=== PATIENT | female | born 1985 | race Caucasian/White ===

== ENCOUNTER 2016-10-08 07:38 | Emergency (ER) | payer OTHER ==
[2016-10-08 07:50] VITALS: RESP 18; TEMP 98.6
[2016-10-08] MEDS ORDERED: NS 1,000 ML IV ONE (07:51)
--- NOTE | 2016-10-08 07:57 | EDPHY ---
H & P Time Seen by Provider: 10/08/16 07:45 HPI/ROS: HPI Lower abdominal pain. 31-year-old female by private vehicle with her mother. This patient reports that she developed lower abdominal, mid suprapubic pain last night after having sexual intercourse with a long-time boyfriend. She reports that her last bowel movement was yesterday. She denies any bloody or melenic stool. No diarrhea. Last menstrual period was 09/14/2016. She had a small amount of vaginal bleeding last night but then this stopped she has had no vaginal bleeding this morning. She describes having some mild burning with urination. No fever. No back pain. No nausea or vomiting. No other complaints. ROS: Constitutional: No fever, no chills. No weakness. Eyes: No discharge. No changes in vision. ENT: No sore throat. No nasal congestion or rhinorrhea. Respiratory: No cough. No shortness of breath. Cardiac: No chest pain, no palpitations. Gastrointestinal: As above, no vomiting, no diarrhea. Genitourinary: No hematuria. No dysuria or increased frequency with urination. Musculoskeletal: No back pain. No neck pain. No myalgias or arthralgias. Skin: No rashes. Neurological: No headache. No focal weakness or altered sensation. Past medical history: No significant past medical history. No prior abdominal surgical history. Social history: Nonsmoker. No alcohol. Here with her mother. Physical Exam: General Appearance: Alert, no distress. This patient is responding to questions appropriately and in full sentences. This patient appears well- hydrated and well-nourished. Eyes: Pupils equal and round no pallor or injection. No lid edema, erythema or injection. Respiratory: There are no retractions, lungs are clear to auscultation with good air movement bilaterally. Cardiovascular: Regular rate and rhythm. No murmur. Gastrointestinal: Abdomen is soft and nontender, mild suprapubic tenderness on palpation, no masses, bowel sounds normal. No focal tenderness at McBurney's point. No Siu sign. Neurological: Motor sensory function is grossly intact. Cranial nerves are normal. Gait is normal. Skin: Warm and dry, no rashes. Musculoskeletal: Neck is supple and nontender. Extremities are symmetrical. All joints range without pain or impingement. Psychiatric: No agitation. No depression. Database: EKG: Imaging: Pelvic ultrasound: Right ovarian hemorrhagic cyst measuring 5.4 x 5 x 4.0, small amount of hemoperitoneum, largest pocket is 3 x 3 cm. Otherwise no torsion. Uterus is unremarkable. No other significant findings. Results were discussed with staff radiologist Dr. Adolfo Washington. Procedures: Emergency department course: IV placed. She was placed on a monitor. She declines pain medication initially. Urine appropriate blood work obtained. She will be sent for a pelvic ultrasound. Vital signs reviewed and are normal. She is afebrile. 10:00 a.m., patient re-evaluated. Resting comfortably at this time. Vital signs reviewed and are normal. She states that she is feeling better. No vaginal bleeding. Repeat abdominal exam she is soft, nontender nondistended. I discussed the results of her ultrasound, blood work and urinalysis in detail with her and her mother. I discussed doing a pelvic exam. The patient and mother declined this at this time. I feel she is safe for discharge but with strict return to emergency department precautions. She feels comfortable going home with her mother. Follow-up was discussed with her. All of her questions were answered. She was discharged in good condition with her mother. Differential Diagnosis: The differential diagnosis on this patient includes but is not limited to cystitis, urinary tract infection, ovarian cyst, hemorrhagic ovarian cyst, vaginal trauma, cervicitis. Ectopic unlikely. This represents a partial list of diagnoses considered. These considerations are based on history , physical exam, past history, reassessment and diagnostic testing. Smoking Status: Never smoked Constitutional: Initial Vital Signs Temperature (C) 37.0 C 10/08/16 07:48 Heart Rate 63 10/08/16 07:48 Respiratory Rate 18 10/08/16 07:48 Blood Pressure 121/78 H 10/08/16 07:48 O2 Sat (%) 94 10/08/16 07:48 O2 Delivery Mode Room Air Allergies/Adverse Reactions: Penicillins Allergy (Intermediate, Verified 11/23/15 10:54) Rash Home Medications: Medication Instructions Recorded NK [No Known Home Meds] 10/08/16 Medical Decision Making - Data Points Laboratory Results: Laboratory Results 10/08/16 08:00 10/08/16 08:00 10/08/16 10/08/16 10/08/16 08:30 08:00 08:00 WBC RBC Hgb Hct MCV MCH MCHC RDW Plt Count MPV Neut % (Auto) Lymph % (Auto) [place] % (Auto) Eos % (Auto) Baso % (Auto) Nucleat RBC Rel Count Absolute Neuts (auto) Absolute Lymphs (auto) Absolute Monos (auto) Absolute Eos (auto) Absolute Basos (auto) Absolute Nucleated RBC Immature Gran % Immature Gran # Sodium 139 mEq/L mEq/L (134-144) Potassium 3.9 mEq/L mEq/L (3.5-5.2) Chloride 104 mEq/L mEq/L (97-110) Carbon Dioxide 20 mEq/l L mEq/l (22-31) Anion Gap 15 mEq/L mEq/L (8-16) BUN 6 mg/dL L mg/dL (7-23) Creatinine 0.6 mg/dL mg/dL (0.6-1.0) Estimated GFR > 60 Glucose 89 mg/dL mg/dL (70-100) Calcium 9.2 mg/dL mg/dL (8.5-10.4) Total Bilirubin 1.2 mg/dL mg/dL (0.1-1.4) Conjugated Bilirubin 0.3 mg/dL mg/dL (0.0-0.5) Unconjugated Bilirubin 0.9 mg/dL mg/dL (0.0-1.1) AST 17 IU/L IU/L (14-46) ALT 20 IU/L IU/L (9-52) Alkaline Phosphatase 63 IU/L IU/L (38-126) Total Protein 7.3 g/dL g/dL (6.3-8.2) Albumin 4.0 g/dL g/dL (3.5-5.0) Beta HCG, Qual NEGATIVE Urine Color YELLOW Urine Appearance CLEAR Urine pH 6.5 (5.0-7.5) Ur Specific [place] 1.010 (1.002-1.030) Urine Protein NEGATIVE (NEGATIVE) Urine Ketones 1+ H (NEGATIVE) Urine Blood 1+ H (NEGATIVE) Urine Nitrate NEGATIVE (NEGATIVE) Urine Bilirubin NEGATIVE (NEGATIVE) Urine Urobilinogen 0.2 EU EU (0.2-1.0) Ur Leukocyte Esterase TRACE H (NEGATIVE) Urine RBC 1-3 /hpf /hpf (0-3) Urine WBC 5-10 /hpf H /hpf (0-3) Ur Epithelial Cells 2+ /lpf H /lpf (NONE-1+) Urine Bacteria 2+ /hpf H /hpf (NONE SEEN) Urine Mucus 2+ /lpf H /lpf (NONE-1+) Urine Glucose NEGATIVE (NEGATIVE) 10/08/16 08:00 WBC 10.42 10^3/uL H 10^3/uL (3.80-9.50) RBC 4.23 10^6/uL 10^6/uL (4.18-5.33) Hgb 13.5 g/dL g/dL (12.6-16.3) Hct 39.8 % % (38.0-47.0) MCV 94.1 fL fL (81.5-99.8) MCH 31.9 pg pg (27.9-34.1) MCHC 33.9 g/dL g/dL (32.4-36.7) RDW 13.0 % % (11.5-15.2) Plt Count 222 10^3/uL 10^3/uL (150-400) MPV 10.5 fL fL (8.7-11.7) Neut % (Auto) 74.9 % H % (39.3-74.2) Lymph % (Auto) 17.3 % % (15.0-45.0) [place] % (Auto) 6.8 % % (4.5-13.0) Eos % (Auto) 0.3 % L % (0.6-7.6) Baso % (Auto) 0.4 % % (0.3-1.7) Nucleat RBC Rel Count 0.0 % % (0.0-0.2) Absolute Neuts (auto) 7.81 10^3/uL H 10^3/uL (1.70-6.50) Absolute Lymphs (auto) 1.80 10^3/uL 10^3/uL (1.00-3.00) Absolute Monos (auto) 0.71 10^3/uL 10^3/uL (0.30-0.80) Absolute Eos (auto) 0.03 10^3/uL 10^3/uL (0.03-0.40) Absolute Basos (auto) 0.04 10^3/uL 10^3/uL (0.02-0.10) Absolute Nucleated RBC 0.00 10^3/uL 10^3/uL (0-0.01) Immature Gran % 0.3 % % (0.0-1.1) Immature Gran # 0.03 10^3/uL 10^3/uL (0.00-0.10) Sodium Potassium Chloride Carbon Dioxide Anion Gap BUN Creatinine Estimated GFR Glucose Calcium Total Bilirubin Conjugated Bilirubin Unconjugated Bilirubin AST ALT Alkaline Phosphatase Total Protein Albumin Beta HCG, Qual Urine Color Urine Appearance Urine pH Ur Specific [place] Urine Protein Urine Ketones Urine Blood Urine Nitrate Urine Bilirubin Urine Urobilinogen Ur Leukocyte Esterase Urine RBC Urine WBC Ur Epithelial Cells Urine Bacteria Urine Mucus Urine Glucose Medications Given: Discontinued Medications Hydromorphone HCl (Dilaudid) 0.25 mg IVP EDNOW ONE Stop: 10/08/16 08:35 Last Admin: 10/08/16 08:34 Dose: 0.25 mg Sodium Chloride (Ns) 1,000 mls @ 0 mls/hr IV ONCE ONE; Wide Open PRN Reason: Protocol Stop: 10/08/16 07:52 Last Admin: 10/08/16 08:03 Dose: 1,000 mls Departure - Departure Disposition: Home, Routine, Self-Care Clinical Impression: Lower abdominal pain, Hemorrhagic cyst of right ovary Condition: Good Instructions: Ruptured Ovarian Cyst (ED) Additional Instructions: Read and follow provided instructions. Follow-up with your primary care physician or OBGYN in 1-2 days as needed for persisting symptoms. Return to the emergency department for worsening pain, fever, vaginal bleeding, lightheadedness, back pain or other serious concerns. Referrals: Sukhwinder Paredes MD [Primary Care Provider] - As per Instructions
[2016-10-08 08:05] LABS: % IMMATURE GRANULYOCYTES 0.3 % (0.0-1.1); ABSOLUTE IMMATURE GRANULOCYTES 0.03 10^3/uL (0.00-0.10); ADD DIFF? NO; ADD MORPH? NO; ADD SCAN? NO; ATYPICAL LYMPHOCYTE FLAG 10 (0-99); FRAGMENT RBC FLAG 0 (0-99); HEMATOCRIT 39.8 % (38.0-47.0); HEMOGLOBIN 13.5 g/dL (12.6-16.3); LEFT SHIFT FLG 0 (0-99); LIPEMIA HEMOLYSIS FLAG 90 (0-99); MEAN CELL HEMOGLOBIN 31.9 pg (27.9-34.1); MEAN CELL HEMOGLOBIN CONCENTR. 33.9 g/dL (32.4-36.7); MEAN CELL VOLUME 94.1 fL (81.5-99.8); MEAN PLATELET VOLUME 10.5 fL (8.7-11.7); PLATELET CLUMPS FLAG 10 (0-99); PLATELET COUNT 222 10^3/uL (150-400); RED BLOOD CELL COUNT 4.23 10^6/uL (4.18-5.33)
[2016-10-08] MEDS ORDERED: HYDROmorphONE/DILAUDID 1 MG/ML SYR ONE (08:24)
[2016-10-08 08:30] LABS: ALANINE AMINOTRANSFERASE 20 IU/L (9-52); ALKALINE PHOSPHATASE 63 IU/L (38-126); ANION GAP 15 mEq/L (8-16); ASPARTATE AMINOTRANSFERASE 17 IU/L (14-46); BILIRUBIN,TOTAL 1.2 mg/dL (0.1-1.4); BILIRUBIN-CONJUGATED 0.3 mg/dL (0.0-0.5); BILIRUBIN-UNCONJUGATED 0.9 mg/dL (0.0-1.1); CALCIUM 9.2 mg/dL (8.5-10.4); CARBON DIOXIDE 20 mEq/l (22-31); CHLORIDE 104 mEq/L (97-110); CREATININE 0.6 mg/dL (0.6-1.0); GLOMERULAR FILTRATION RATE > 60; GLUCOSE 89 mg/dL (70-100); POTASSIUM 3.9 mEq/L (3.5-5.2); SODIUM 139 mEq/L (134-144); TOTAL PROTEIN 7.3 g/dL (6.3-8.2)
[2016-10-08 08:32] LABS: COLOR YELLOW; LEUKOCYTE ESTERASE,URINE TRACE (NEGATIVE); NITRITE,URINE NEGATIVE (NEGATIVE); PH,URINE 6.5 (5.0-7.5)
[2016-10-08] MEDS ORDERED: HYDROmorphONE/DILAUDID 1 MG/ML SYR IVP ONE (08:34)
[2016-10-08 08:46] LABS: BACTERIA 2+ /hpf (NONE SEEN); MUCUS 2+ /lpf (NONE-1+)
[2016-10-08 10:18] VITALS: BP 99/40; PULSE 50; O2SAT 100
== END 2016-10-08 10:16 | disposition home or self-care (01) ==
LOC: CED 07:38
DX: N83.201 Unspecified ovarian cyst, right side (principal)
CPT/HCPCS: 76856-PO; 80048-PO; 80076-PO; 81003-PO; 81015-PO; 84703-PO; 85025-PO; 96374; J1170

== ENCOUNTER 2018-05-02 14:33 | Emergency (ER) | payer OTHER ==
--- NOTE | 2018-05-02 15:19 | EDPHY ---
H & P Time Seen by Provider: 05/02/18 14:52 HPI/ROS: She this patient complains of injury to the sacral/coccyx region and lumbar area from a fall from a pull-up bar in the gym yesterday evening. She was doing knee ops when she slipped and fell onto her low back/coccyx area. She reports 8 of 10 pain achy in nature baseline becomes sharp with movement. She has some improvement when she lies supine holding still and worsening with movement. She took 600 mg of ibuprofen 12 30 today without much improvement in pain and notes no other exacerbating factors. She does report associated 3rd finger injuries both hands right more than left 5/10 intensity pain to the PIP joints with mild swelling and ecchymosis. Her mother drove her in for evaluation today. ROS: Constitutional: No complaints HEENT: No injuries Neuro: No numbness tingling focal weakness, bowel or bladder incontinence. No closed head injury or headache Pulmonary: No chest wall pain GI: No abdominal pain Integumentary: No lacerations abrasions 7 point review of symptoms is performed and otherwise negative with exception of pertinent positives and negatives listed in HPI and ROS Smoking Status: Never smoked Physical Exam: General Appearance: Alert, no distress. Eyes: Pupils equal and round no pallor or injection. ENT,-atraumatic Mouth: Mucous membranes moist. Respiratory: There are no retractions, lungs are clear to auscultation. No chest wall tenderness Cardiovascular: Regular rate and rhythm. Gastrointestinal: Abdomen is soft and nontender, no masses, bowel sounds normal. Back: She has midline tenderness from El for extending downward to the coccyx. This is moderate tenderness. No ecchymosis appreciated. Pelvic bones: No pain with anterior pressure on the pubic symphysis or the pressure from lateral to medial on the iliac crests. Neurological: GCS 15. She maintains normal light touch sensory exam bilateral lower extremities and 2+ symmetric patellar and Achilles DTRs bilaterally with 5 /5 strength in great toe dorsiflexion and plantar flexion. Skin: Warm and dry, no rashes. Musculoskeletal: Neck is supple nontender. Extremities are symmetrical, full range of motion. Psychiatric: Mood and affect are normal DIFFERENTIAL DIAGNOSIS: After history and physical exam differential diagnosis was considered for lumbar fracture, sacral fracture, coccyx fracture, contusions , finger sprain versus fractures bilaterally Constitutional: Initial Vital Signs Heart Rate 57 L 05/02/18 14:44 Respiratory Rate 16 05/02/18 14:44 Blood Pressure 112/65 05/02/18 14:44 O2 Sat (%) 96 05/02/18 14:44 O2 Delivery Mode Room Air Allergies/Adverse Reactions: Penicillins Allergy (Intermediate, Verified 05/02/18 14:48) Rash Home Medications: Medication Instructions Recorded Bioidentical Hormone 05/02/18 Methocarbamol [Robaxin 750 mg (*)] 750 - 1,500 mg PO QID PRN #30 tab 05/02/18 traMADol [Ultram 50 mg (*)] 50 - 100 mg PO Q4 PRN #20 tab 05/02/18 MDM/Departure - MDM Diagnostics: Lumbosacral x-rays: Negative for fracture with loss of lordosis spine my interpretation Coccyx/sacrum discussed with radiologist-negative for fracture Right 3rd finger x-ray positive for avulsion fracture middle phalanx Left 3rd finger x-ray positive for avulsion fracture middle phalanx Imaging Results: Imaging Impressions Finger X-Ray 05/02/18 15:05 Impression: Tiny volar plate avulsion, middle phalanx right third finger at the PIP joint. Finger X-Ray 05/02/18 15:05 Impression: Tiny volar plate avulsion fracture, middle phalanx, left third finger at the PIP joint. Lumbar Spine X-Ray 05/02/18 15:07 Impression: Negative. 2. Sacrum And Coccyx, 3 views History: Pain post fall yesterday Findings: The SI joints are symmetric and normal. The sacrum and coccyx are normally aligned. No fracture is identified. Impression: Negative. Sacrum and Coccyx X-Ray 05/02/18 15:07 Impression: Negative. 2. Sacrum And Coccyx, 3 views History: Pain post fall yesterday Findings: The SI joints are symmetric and normal. The sacrum and coccyx are normally aligned. No fracture is identified. Impression: Negative. Imaging: Discussed imaging studies w/ call center coordinator Radiologist (Coccyx x-rays), I viewed and interpreted images myself ED Course/Re-evaluation: The patient declined analgesics. Our Jose wilcox placed Alumafoam splints on bilateral 3rd finger fractures in partial flexion according to my instructions the my supervision. Patient is neurovascular intact post splint application Discussion: Patient with small avulsion fractures bilateral middle phalanx of 3rd fingers but. She also has findings consistent with coccyx contusion in low back strain. We ruled out fracture, no evidence of cauda equina or other red flag findings. I counseled this patient regarding her injuries with plan to follow up with hand specialist and answered all her questions prior to discharge home. She understands need to return emergency department should she develop unbearable pain, onset of neurological symptoms or lower extremities or other concerns. Will plan to send her home on ibuprofen, methocarbamol, tramadol and Tylenol for pain control - Depart Disposition: Home, Routine, Self-Care Clinical Impression: Coccyx contusion Qualifiers: Encounter type: initial encounter Qualified Code(s): S30.0XXA - Contusion of lower back and pelvis, initial encounter Low back strain Qualifiers: Encounter type: initial encounter Qualified Code(s): S39.012A - Strain of muscle, fascia and tendon of lower back, initial encounter Finger fracture, left Qualifiers: Encounter type: initial encounter Finger: middle finger Fracture type: closed Phalanx: middle Fracture alignment: nondisplaced Qualified Code(s): S62.653A - Nondisplaced fracture of middle phalanx of left middle finger, initial encounter for closed fracture Finger fracture, right Qualifiers: Encounter type: initial encounter Finger: middle finger Fracture type: closed Phalanx: middle Fracture alignment: nondisplaced Qualified Code(s): S62.652A - Nondisplaced fracture of middle phalanx of right middle finger, initial encounter for closed fracture Condition: Good Instructions: Finger Fracture (ED), Low Back Strain (ED) Additional Instructions: Diagnoses: 1. Coccyx contusion 2. Low back strain 3. Middle finger fractures bilaterally Plan: Ibuprofen, Tylenol, methocarbamol muscle relaxant, tramadol in addition if needed for pain that prevents sleep. No driving, alcohol work on tramadol Splints to fingers when you're up and about. Call hand specialist arrange follow-up appointment for recheck in 3-7 days regarding your fingers. Return if you develop unbearable pain despite treatment plan, loss of control of her bowel or bladder or other concerns. Prescriptions: Methocarbamol [Robaxin 750 mg (*)] 750 - 1,500 mg PO QID PRN #30 tab PRN Reason: Muscle Spasms traMADol [Ultram 50 mg (*)] 50 - 100 mg PO Q4 PRN #20 tab PRN Reason: breakthrough pain Referrals: Nia Moore CNP [Primary Care Provider] - As per Instructions Carlton Bronson MD [Medical Doctor] - As per Instructions
[2018-05-02 16:38] VITALS: BP 118/68
== END 2018-05-02 16:35 | disposition home or self-care (01) ==
LOC: CED 14:33
DX: S62.653A Nondisplaced fracture of middle phalanx of left middle finger, initial encounter for closed fracture (principal); S62.656A Nondisplaced fracture of middle phalanx of right little finger, initial encounter for closed fracture; S39.012A Strain of muscle, fascia and tendon of lower back, initial encounter; S30.0XXA Contusion of lower back and pelvis, initial encounter; W01.0XXA Fall on same level from slipping, tripping and stumbling without subsequent striking against object, initial encounter; Y93.B2 Activity, push-ups, pull-ups, sit-ups; Y92.9 Unspecified place or not applicable; Y99.9 Unspecified external cause status
CPT/HCPCS: 72100-PO; 72220-PO; 73140-PO; 99284-ER; L3925-ER